=== PATIENT | female | born 1950 | race Caucasian/White ===

== ENCOUNTER 2017-03-16 06:37 | Day surgery (SDC) | payer OTHER ==
[~2017-03-16] VITALS: Ht 152.4 cm; Wt 61.8 kg
[~2017-03-16 06:37] MED LIST: ASPIRIN 81M81 MG/TA2 PO; FERROUS SU325 MG/TAB PO; FOLIC ACID PO; VITAMIN C500 MG PO
[2017-03-16 07:20] VITALS: BP 139/74; PULSE 63; TEMP 97.8
[2017-03-16] MEDS ORDERED: MELATONIN1 MG PO (07:26)
[2017-03-16] MEDS ORDERED: ALLERGY PILL PO (07:28)
[2017-03-16 10:50] VITALS: BP 125/64; PULSE 50; TEMP 97.8
[2017-03-16 11:05] VITALS: BP 127/55; PULSE 58
[2017-03-16 11:20] VITALS: BP 128/48; PULSE 61
[2017-03-16 14:14] VITALS: BP 146/87; PULSE 58; TEMP 97.7
== END 2017-03-16 11:55 | disposition home or self-care (01) ==
LOC: SDCO 06:37
DX: C50.011 Malignant neoplasm of nipple and areola, right female breast (principal); I83.93 Asymptomatic varicose veins of bilateral lower extremities; R01.1 Cardiac murmur, unspecified; M17.11 Unilateral primary osteoarthritis, right knee; Z96.651 Presence of right artificial knee joint; Z80.0 Family history of malignant neoplasm of digestive organs; E78.5 Hyperlipidemia, unspecified; G47.00 Insomnia, unspecified; N81.10 Cystocele, unspecified
CPT/HCPCS: J0690; J1100; J1885; J2250; J2405; J2704; J3010; J7120